=== PATIENT | female | born 1935 | race Caucasian/White ===

== ENCOUNTER → 2023-06-17 12:57 | Outpatient (REF) | payer MEDICARE, SELFPAY ==
--- NOTE | 2023-06-17 13:04 | CA_ITS ---
Transthoracic Echocardiogram Patient (Last, First, Middle): Clau Caputo, Gender: Female Date of : 1935 Age: 88 Procedure Date: 06/17/2023 Procedure Type: Transthoracic Echocardiogram Location: OP Height: 167.64 cm Weight: 55.34 kg BSA: 1.62 m2 Heart Rate: 74 bpm BP: 118 / 60 mmHg Prepleater: Referring MD: Lorie ENGEL Symptoms: [id number] Study Quality: Adequate ECG Rhythm: Sinus Conclusions: - The left ventricular systolic function is normal. The calculated ejection fraction is 62% by biplane method. - The basal inferior and basal inferolateral segments are hypokinetic. - No obvious valvular pathology seen on this study. Findings Left Ventricle Normal left ventricular cavity size. There is normal left ventricular wall thickness. The left ventricular systolic function is normal. The calculated ejection fraction is 62% by biplane method. There is no evidence of regional wall motion abnormalities. Evidence suggests grade I (mild) diastolic dysfunction. Wall Motion Rest Echo Findings The basal inferior and basal inferolateral segments are hypokinetic. Right Ventricle Normal right ventricular cavity size and systolic function. Atria Both atria are normal in size. Aortic Valve There is a normal trileaflet aortic valve. There is no aortic valve stenosis. There is trace (trivial) aortic valve regurgitation. Mitral Valve The mitral valve appears normal. There is trace mitral valve regurgitation. There is no mitral valve stenosis. Pulmonic Valve There is trace pulmonic valve regurgitation. Tricuspid Valve Normal tricuspid valve structure. There is no tricuspid valve regurgitation. There is no evidence of pulmonary hypertension. Great Vessels The asc aorta is normal in size. Venous The inferior vena cava is normal in size and collapses greater than 50% with inspiration. Pericardium/Pleural There is no evidence of pericardial effusion. Prior Study Comparison No prior study available for comparison. Recommendations, Care & Conclusions No obvious valvular pathology seen on this study. Measurements 2D Linear Measurements IVSd: 0.90 0.6-0.9/0.6-1.0 cm LVIDd: 3.49 3.9-5.3/4.2-5.9 cm LVIDd Index: 2.15 2.4-3.2/2.2-3.1 cm/m2 LVIDs: 2.30 2.0-3.6 cm LVPWd: 0.88 0.7-1.1 cm LA Diam: 2.60 2.7-3.8/3.0-4.0 cm LAIDs Index: 1.60 1.5-2.3 cm/m2 LV Mass: 107.84 67-162/88-224 g LV Mass Index: 66.57 43-95/49-115 g/m2 LVOT Diam: 2.20 3.0+(-)1.3 cm 2D Systolic Function EF 4C: 65.30 >55% EF 2C: 61.50 >55% EF BiP: 62.40 >55% Mitral Valve MV Pk E: 0.33 MV PK A: 0.84 MV Decel Time: 288.00 E/A: 0.40 E'Lateral: 6.74 E'Medial: 5.33 E/E' Med: 6.20 E/E' Lat: 4.90 PHT: 84.00 MVA PHT: 2.62 Decel Fisher: 1.93 Aortic Valve AoV Pk Mansoor: 1.04 AoV Mn Mansoor: 0.65 AoV VTI: 0.25 AoV Pk Grad: 4.00 Aov Mn Grad: 2.00 PRECIOUS Cont.VTI: 2.83 LVOT LVOT Pk Mansoor: 0.78 LVOT Mn Mansoor: 0.47 LVOT VTI: 0.19 LVOT Pk Grad: 2.00 LVOT Mn Grad: 1.00 LVOT Diam: 2.20 LVOT Area: 3.80 Diastolic Function MV Pk E: 0.33 MV Pk A: 0.84 E/A: 0.40 E'Medial: 5.33 E/E' Med: 6.20 E' Laterial: 6.74 E/E' Lat: 4.90 Right Ventricle TAPSE (mm): 23.80 TVS' Mansoor: 10.80 Tricuspid Valve TR Pk Mansoor: 2.27 TR Pk Grad: 21.00 RA Press: 3.00 RVSP: 24.00 Great Vessels Aorta Sinus of Valsalva: 3.60 2.0-3.5 cm Ao Asc: 3.00 2.1-3.4 cm Pulmonary Valve PV Pk Mansoor: 0.75 Peak PV Grad: 2.00 Updated in Other Vendor System with Status of Final Tarun Barreto MD electronically signed on 06/18/2023 9:58:03 AM with status of Final
== END ==
LOC: HO.CARD 12:57
PROVIDERS: PCP Internal Medicine; Visit Provider Physician Assistant
DX: R06.00 Dyspnea, unspecified (principal)
CPT/HCPCS: 93306

== ENCOUNTER → 2023-06-17 13:04 | Outpatient (BNV) | payer MEDICARE, SELFPAY | PROVIDERS: PCP Internal Medicine; Visit Provider Internal Medicine | DX: I51.9 Heart disease, unspecified (principal) | CPT/HCPCS: 93306 ==